=== PATIENT | male | born 1990 | race Caucasian/White ===

== ENCOUNTER 2025-02-19 13:32 | Emergency (ER) | payer OTHER ==
[~2025-02-19] VITALS: Ht 177.8 cm; Wt 85.0 kg
[2025-02-19 13:36] VITALS: O2SAT 100
[2025-02-19] MEDS ORDERED: LORAZEPAM 2MG/ML INJ IV STA (13:43)
[2025-02-19 14:15] LABS: BASOPHILS % 0.9 % (0.0-2.0); HEMATOCRIT. 39.3 % (42.0-52.0); HEMOGLOBIN. 12.8 g/dL (14.0-18.0); LYMPHOCYTES % 7.9 % (20.0-50.0); MEAN CORPUSCULAR HEMOGLOBIN 21.8 pg (28.0-32.0); MEAN CORPUSCULAR HGB CONC 32.5 g/dL (31.0-37.0); MEAN PLATELET VOLUME 8.9 fl (7.4-10.4); MONOCYTES % 3.6 % (2.0-8.0); NEUTROPHILS % 87.6 % (40.0-76.0); PLATELET 238 x1000/uL (130-400); RED BLOOD CELL COUNT 5.87 mill/uL (4.7-6.1); WHITE BLOOD COUNT 17.2 x1000/uL (4.5-11.0)
[2025-02-19 14:16] LABS: DIFFERENTIAL COMMENT 1
[2025-02-19 14:17] LABS: ADD RBC MORPHOLOGY YES
[2025-02-19] MEDS: ONDANSETRON HCL 4MG/2ML INJ IV STA (14:20)
[2025-02-19] MEDS: SODIUM CHLORIDE 0.9% 1,000 ML IV ONE (14:21)
[2025-02-19 14:23] LABS: CHLORIDE 113 mEq/L (98-107); POTASSIUM 3.3 mEq/L (3.5-5.1); SODIUM 142 mEq/L (136-145)
[2025-02-19 14:24] LABS: CARBON DIOXIDE 17 mEq/L (21-32)
[2025-02-19 14:25] LABS: PLATELET ESTIMATE NORMAL
[2025-02-19] MEDS: DIPHENHYDRAMINE 50MG/ML VIAL IV STA (14:25)
[2025-02-19 14:26] LABS: TEAR DROP CELLS 1+
[2025-02-19 14:27] LABS: MICROCYTOSIS 3+
[2025-02-19 14:28] LABS: ANISOCYTOSIS 1+
[2025-02-19 14:29] LABS: CREATININE 1.2 mg/dL (0.6-1.3); GLUCOSE 126 mg/dL (70-105); UREA NITROGEN BLOOD 14 mg/dL (9-23)
[2025-02-19 14:31] LABS: ALANINE AMINOTRANSFERASE 16 IU/L (10-49); ASPARTATE AMINOTRANSFERASE 20 IU/L (<34); BILIRUBIN DIRECT 0.4 mg/dL (<=3.0); PHOSPHORUS 1.4 mg/dL (2.5-4.9)
[2025-02-19 14:32] LABS: BILIRUBIN TOTAL 1.5 mg/dL (0.1-1.0)
[2025-02-19] MEDS: LORAZEPAM 2MG/ML UD SYRINGE IV SCH (14:32)
[2025-02-19] MEDS: MORPHINE SULFATE 4 MG/ML INJ (FOR IV/IM USE) IV STA (14:32)
[2025-02-19] MEDS: POTASSIUM PHOSPHATE 10 MMOL in DEXT 5% WATER 246.6667 ML IV SCH (17:00)
[2025-02-19] MEDS: MORPHINE SULFATE 4 MG/ML INJ (FOR IV/IM USE) IV ONE (18:06)
[2025-02-19 18:10] VITALS: BP 142/77; PULSE 88; RESP 25; TEMP 36.4; O2SAT 100
== END 2025-02-19 18:10 | disposition home or self-care (01) ==
LOC: ER 13:32
DX: R11.15 Cyclical vomiting syndrome unrelated to migraine (principal); F41.9 Anxiety disorder, unspecified
CPT/HCPCS: 99284; 96365; 96375; 96361; 80076; 80048; 83690; 83735; 84100; 85025; 36415; 96376; J1200; J2060; J2405; J3490; J2270; J7060; J7030

== ENCOUNTER 2025-09-03 14:47 | Emergency (ER) | payer OTHER ==
[~2025-09-03] VITALS: Ht 182.9 cm; Wt 85.0 kg
[2025-09-03 14:50] VITALS: O2SAT 98
[2025-09-03] MEDS: ONDANSETRON HCL 4MG/2ML INJ IV ONE (17:02)
[2025-09-03] MEDS: METOCLOPRAMIDE HCL 10MG/2ML VIAL IV ONE (17:02)
[2025-09-03] MEDS: SODIUM CHLORIDE 0.9% 1,000 ML IV ONE (17:02)
[2025-09-03] MEDS: FAMOTIDINE 20MG/2ML VIAL IV ONE (17:02)
[2025-09-03] MEDS: MAGNESIUM/ALUMINUM HYDROXIDE/SIMETHICONE 30ML UDC PO ONE (17:02)
[2025-09-03] MEDS: LORAZEPAM 2MG/ML UD SYRINGE IV NR (17:11)
[2025-09-03 17:21] LABS: HEMATOCRIT. 41.8 % (42.0-52.0); HEMOGLOBIN. 13.5 g/dL (14.0-18.0); MEAN PLATELET VOLUME 8.9 fl (7.4-10.4); PLATELET 275 x1000/uL (130-400); RED BLOOD CELL COUNT 6.18 mill/uL (4.7-6.1); RED CELL DISTRIBUTION WIDTH 16.7 % (11.6-14.6)
[2025-09-03 17:29] LABS: CREATININE 1.0 mg/dL (0.6-1.3)
[2025-09-03 17:30] LABS: ETHANOL BLOOD < 10 mg/dL (<10); PROTEIN TOTAL 7.0 g/dL (6.0-8.3); UREA NITROGEN BLOOD 9 mg/dL (9-23)
[2025-09-03 17:31] LABS: ASPARTATE AMINOTRANSFERASE 21 IU/L (<34)
[2025-09-03 17:32] LABS: BILIRUBIN DIRECT 0.3 mg/dL (<=3.0); BILIRUBIN TOTAL 1.1 mg/dL (0.1-1.0)
[2025-09-03 17:50] LABS: LYMPHOCYTES % MANUAL 3.0 % (20.0-50.0); MONOCYTES % MANUAL 5.0 % (2.0-8.0); NEUTROPHILS % MANUAL 92.0 % (45.0-75.0); PLATELET ESTIMATE NORMAL
[2025-09-03 19:07] LABS: CLARITY URINE CLEAR (CLEAR); COLOR URINE DARK YELLOW (YELLOW); GLUCOSE URINE NEGATIVE (NEGATIVE); KETONES URINE 4+ (NEGATIVE); LEUKOCYTE ESTERASE URINE TRACE (NEGATIVE); NITRITE URINE NEGATIVE (NEGATIVE); OCCULT BLOOD URINE NEGATIVE (NEGATIVE); PH URINE 6.5 (4.5-8.0); PROTEIN URINE 1+ (NEGATIVE); SPECIFIC GRAVITY URINE 1.030 (1.005-1.030); UROBILINOGEN URINE 1.0 E.U./dL (0.2-1.0)
[2025-09-03 19:16] LABS: *AMPHETAMINES SCREEN URINE NEGATIVE (NEGATIVE); *BARBITURATES SCREEN URINE NEGATIVE (NEGATIVE); *BENZODIAZEPINES SCREEN URINE NEGATIVE (NEGATIVE); *COCAINE SCREEN URINE NEGATIVE (NEGATIVE); CANNABINOID URINE SCREEN PRESUMPTIVE POSITIVE (NEGATIVE); ECSTASY MDMA SCREEN URINE NEGATIVE (NEGATIVE); METHADONE URINE SCREEN NEGATIVE (NEGATIVE); OPIATES URINE SCREEN NEGATIVE (NEGATIVE); PHENCYCLIDINE URINE SCREEN NEGATIVE (NEGATIVE)
[2025-09-03 19:18] LABS: BACTERIA URINE TRACE; RBC URINE 0-2 /hpf (0-2); SQUAMOUS EPITHELIAL CELL URINE RARE /lpf (RARE/1+)
[2025-09-03 19:19] LABS: WBC URINE 0-2 /hpf (0-2)
[2025-09-03 19:26] VITALS: BP 140/90; PULSE 60; RESP 17; TEMP 36.7; O2SAT 99
== END 2025-09-03 19:27 | disposition home or self-care (01) ==
LOC: ER 14:47
DX: R11.15 Cyclical vomiting syndrome unrelated to migraine (principal); F12.90 Cannabis use, unspecified, uncomplicated; F41.9 Anxiety disorder, unspecified; R06.02 Shortness of breath; Z79.899 Other long term (current) drug therapy
CPT/HCPCS: 80076; 80305; 80048; 81003; 80320; 83690; 85025; 36415; 93005; 96361; 96374; 96375; 99284; J1308; J2060; J2765; J2405; J7030; G0480